=== PATIENT | female | born 1950 | race Caucasian/White ===

== ENCOUNTER 2023-04-24 03:10 | Emergency (ER) | payer MEDICARE ==
[2023-04-24] MEDS ORDERED: HYDROcodone/Acetaminophen 10/325 mg Tablet ONE (03:41)
== END 2023-04-24 04:30 | disposition home or self-care (01) ==
LOC: CSHERS 03:10
DX: S93.401A Sprain of unspecified ligament of right ankle, initial encounter (principal); I48.91 Unspecified atrial fibrillation; I10 Essential (primary) hypertension; E11.9 Type 2 diabetes mellitus without complications; F17.210 Nicotine dependence, cigarettes, uncomplicated; W17.2XXA Fall into hole, initial encounter; Y93.89 Activity, other specified; Z79.01 Long term (current) use of anticoagulants; Z79.899 Other long term (current) drug therapy